=== PATIENT | male | born 1980 | race African-American/Black ===

== ENCOUNTER 2017-01-26 03:16 | Emergency (ER) | payer SELFPAY ==
[~2017-01-26] VITALS: Ht 177.8 cm; Wt 79.0 kg
[2017-01-26 03:55] VITALS: BP 127/85
== END 2017-01-26 08:42 | disposition left against medical advice (07) ==
LOC: ER 08:10
DX: Z53.21 Procedure and treatment not carried out due to patient leaving prior to being seen by health care provider (principal)